=== PATIENT | female | born 1945 | race Caucasian/White ===

== ENCOUNTER 2023-12-24 01:41 | Observation (INO) | payer OTHER, SELFPAY ==
[2023-12-24] VITALS (7 sets, daily range): BP systolic 107–115; BP diastolic 55–82; PULSE 85–140; RESP 15–18; TEMP 36.1–36.8; O2SAT 94–98; BMI 30.5
--- NOTE | 2023-12-24 01:53 | DI.RAD.S_ITS ---
PROCEDURE: XR CHEST 1V INDICATIONS: chest pain TECHNIQUE: One view of the chest was acquired. COMPARISON: None. FINDINGS: Surgical changes and devices: None. Lungs and pleura: Lungs are clear. No pleural effusions or pneumothorax. Mediastinum: Mediastinal contours appear normal. Heart size is normal. Bones and chest wall: No suspicious bony lesions. Overlying soft tissues appear unremarkable. IMPRESSION: No acute pulmonary process. Dictated by: Columba Madrid M.D. on 12/24/2023 at 8:10 Approved by: Columba Madrid M.D. on 12/24/2023 at 8:15
--- NOTE | 2023-12-24 01:55 | EKG_ITS ---
[address] [address] Test Date: 2023-12-24 Pat Name: Gianna Sommer Department: Room: Gender: Female Tub Mender: : 1945 Requested By: Order Number: [id number] Reading MD: Ceasar Ash Measurements Intervals Lewis Rate: 142 P: 50 MS: 132 QRS: 32 QRSD: 78 T: 63 QT: 284 QTc: 436 Interpretive Statements Critical Test Result: High HR Sinus tachycardia Electronically Signed On 12-24-2023 15:04:18 PDT by Ceasar Ash
--- NOTE | 2023-12-24 02:00 | DI.CT.S_ITS ---
PROCEDURE: CT ABDOMEN PELVIS W CON INDICATIONS: pain can't urinate TECHNIQUE: After the administration of intravenous contrast, axial sections acquired from the lung bases to the pubic symphysis. Coronal and sagittal reformats were performed. For radiation dose reduction, the following was used: automated exposure control, adjustment of mA and/or kV according to patient size. COMPARISON: None. FINDINGS: Image quality: Diagnostic. Lower Chest: No significant findings. ABDOMEN: Liver: The liver is incompletely evaluated as it is not fully included within the field of view. Gallbladder: Stone is present within the lumen without wall thickening or pericholecystic fluid. Biliary ducts: No biliary dilation. Pancreas: No ductal dilation. Spleen: Size is within normal limits. Adrenal Glands: No adrenal nodules. Kidneys and Ureters: No hydronephrosis. No solid mass. No complex renal cystic lesion which requires follow up. Simple right renal cyst. Stomach and Bowel: Normal colonic caliber, without significant wall thickening. Moderate colonic stool without obstruction. Scattered diverticula without inflammatory change. Peritoneum: No abnormal intraperitoneal fluid. No free air. Ventral Wall: No significant ventral hernia. Abdominal Nodes: No retroperitoneal or mesenteric adenopathy by size criteria. Vessels: Aorta and inferior vena cava are normal in size. PELVIS: Pelvic Organs: Unremarkable. Bladder: Bladder is prominently distended. Pelvic Nodes: No enlarged lymph nodes. Miscellaneous: No inguinal hernias are seen. Bones: No aggressive osseous abnormality. IMPRESSION: Prominent colonic stool without obstruction. Cholelithiasis without imaging evidence of cholecystitis. As detailed above, the liver is incompletely visualized as it was not fully included within the field of view. If this remains of concern, follow-up is recommended. Dictated by: Columba Madrid M.D. on 12/24/2023 at 8:37 Approved by: Columba Madrid M.D. on 12/24/2023 at 8:39
--- NOTE | 2023-12-24 02:11 | PC.NURSE ---
260cc bladder scan volume.
[2023-12-24] MEDS: ASPIRIN 81 MG CHEW TAB 324 MG PO (02:12)
[2023-12-24] MEDS: SODIUM CHLORIDE 0.9% 1,000 ML 150 ML IV ×3 (02:12→16:17)
[2023-12-24 02:14] LABS: Add Manual Diff / Slide Review NO; Basophils Absolute Auto 0 /uL (0-100); Basophils Percent Auto 0.2 % (0-2); Eosinophils Absolute Auto 0 /uL (0-450); Eosinophils Percent Auto 0.1 % (2-4); Hematocrit 41.2 % (36-46); Lymphocytes Absolute Auto 1300 /uL (1100-4500); Lymphocytes Percent Auto 6.4 % (25-40); Mean Corpuscular HGB Conc 34.1 % (30-36); Mean Corpuscular Hemoglobin 30.8 PG (26-34); Mean Corpuscular Volume 90.5 fL (80-100); Monocytes Absolute Auto 600 /uL (0-900); Monocytes Percent Auto 3.1 % (3-14); Neutrophils Absolute Auto 18100 /uL (1500-7000); Neutrophils Percent Auto 90.2 % (50-75); Platelet Count 341 X10^3/uL (150-400); Red Blood Cell Count 4.55 X10^6/uL (4.0-5.2); Red Cell Distribution Width 13.4 % (11.6-14.8)
[2023-12-24 02:16] LABS: Alanine Aminotransferase 26 IU/L (<35); Albumin 4.3 g/dL (3.5-5.0); Albumin Globulin Ratio 1.4 (1.0-2.8); Alkaline Phosphatase 131 U/L (38-126); Aspartate Aminotransferase 25 IU/L (14-36); BUN Creatinine Ratio 23.2 (6-22); Blood Urea Nitrogen 16 mg/dL (7-17); Calcium 9.5 mg/dL (8.4-10.2); Carbon Dioxide 26 mmol/L (22-32); Chloride 104 mmol/L (98-107); Creatine Kinase 33 U/L (30-135); Estimated Glomerular Filt Rate > 60 mL/min (>60); Globulin 3.1 g/dL (1.7-4.1); Glucose 187 mg/dL (80-110); HEMOLYSIS < 15 (0-50); Lipase 46 U/L (23-300); Potassium 3.9 mmol/L (3.4-5.1); Sodium 138 mmol/L (137-145); Total Protein 7.4 g/dL (6.3-8.2)
[2023-12-24 02:17] LABS: Lactate (Lactic Acid) 1.8 mmol/L (0.7-2.1)
[2023-12-24 02:28] LABS: Troponin I 0.018 ng/mL (0.01-0.034)
[2023-12-24 02:41] LABS: Prothrombin Time 10.9 SECONDS (9.4-12.5)
[2023-12-24 02:44] LABS: PTT Partial Thromboplastin Tim 37 SECONDS (25.1-36.5)
--- NOTE | 2023-12-24 03:26 | ED_ITS ---
HPI - Abdominal Pain General Chief Complaint: Abdominal Pain Stated Complaint: Urine retention Time Seen by Provider: 12/24/23 01:52 Source: patient and EMS Mode of arrival: EMS History of Present Illness HPI narrative: Patient is a 78-year-old female history of CVA with right-sided deficits presenting today with inability urinate. She reports that she was in her normal state of health which is very limited mobility stays at home with a roommate in the caregiver when throughout the day she knows that she has had decreased urine output and increasing abdominal pain and discomfort. She denies any fever chills. No nausea or vomiting. She feels like she has not urinating very much and feels like she has a ladder. She is told that she had a normal bowel movement by her caregiver this afternoon. She does not always know if she is passing gas or having a bowel movement. She denies any sort of chest pain or palpitations. She noted to have significant tachycardia heart rate in the 160s but is sinus. Related Data Home Medications Medication Instructions Recorded Confirmed aspirin 81 mg tablet 81 mg PO DAILY 12/24/23 12/24/23 atorvastatin 80 mg tablet 80 mg PO DAILY 12/24/23 12/24/23 losartan 50 mg tablet 50 mg PO DAILY 12/24/23 12/24/23 Allergies Allergy/AdvReac Type Severity Reaction Status Date / Time No Known Drug Allergies Allergy Verified 12/24/23 02:13 Patient History Social History household members: friend(s) and caregiver Smoking Status: Former smoker alcohol intake: former Exam Initial Vital Signs Initial Vital Signs: Vital Signs Temperature 98.2 F 12/24/23 02:02 Pulse Rate 140 H 12/24/23 02:02 Respiratory Rate 18 12/24/23 02:02 Blood Pressure 114/68 12/24/23 02:02 Pulse Oximetry 96 12/24/23 02:02 Oxygen Delivery Method Room Air 12/24/23 02:02 GENERAL: Alert pleasant 78-year-old female and in no acute distress. HEENT: Head atraumatic,EOMI, pupils reactive, face symmetric, moist mucous membranes CARDIOVASCULAR: Tachycardic regular RESPIRATORY: Breath sounds equal bilaterally, no wheezes rales or rhonchi. ABDOMEN: Soft, to suprapubic area palpable EXTREMITIES: Normal range of motion, no clubbing or edema. Neurovascularly intact NEUROLOGICAL: Alert and oriented x4. Right sided weakness consistent with previous CVA SKIN: Warm, dry, no laceration, no petechiae, no rashes or lesions. Course Orders Ordered: Acetaminophen (Acetaminophen 325 Mg Tablet) 650 mg PO Q6H PRN PRN Reason: Fever/Mild Pain (1-3) Last Admin: 12/24/23 16:20 Dose: 650 mg Documented By: MM Al Hydrox/Mg Hydrox/Simethicone (Mag Hydrox/Alum/Simeth 30 Ml Udc) 30 ml PO Q6HR PRN PRN Reason: Dyspepsia Bisacodyl (Bisacodyl 10 Mg Supp) 10 mg GA DAILY PRN PRN Reason: Constipation Docusate Sodium (Docusate 100 Mg Capsule) 100 mg PO BID [facility] Last Admin: 12/24/23 22:00 Dose: 100 mg Documented By: Admin: 12/24/23 09:01 Dose: 100 mg Documented By: MM Enoxaparin Sodium (Enoxaparin 40 Mg/0.4 Ml Syringe) 40 mg SUBCUT DAILY [facility] Last Admin: 12/24/23 09:01 Dose: 40 mg Documented By: NOHEMY Sodium Chloride (Normal Saline 0.9%) 1,000 mls @ 150 mls/hr IV CONT [facility] Last Admin: 12/24/23 16:17 Dose: 150 mls/hr Documented By: Infusion: 12/24/23 15:42 Dose: Infused Documented By: Admin: 12/24/23 09:01 Dose: 150 mls/hr Documented By: Infusion: 12/24/23 08:53 Dose: Infused Documented By: Admin: 12/24/23 02:12 Dose: 150 mls/hr Documented By: ROBEL Ceftriaxone Sodium 1,000 mg/ (Sodium Chloride) 100 mls @ 200 mls/hr IV Q24H [facility] Magnesium Hydroxide (Magnesium Hydroxide 30 Ml Udc) 30 ml PO DAILY PRN PRN Reason: Constipation Last Admin: 12/24/23 12:35 Dose: 30 ml Documented By: MM Naloxone HCl (Naloxone 0.4 Mg/Ml Vial) 0.2 mg IV Q2MIN PRN PRN Reason: Opiate Reversal Ondansetron HCl (Ondansetron 4 Mg/2 Ml Inj) 4 mg IV Q8HR PRN PRN Reason: Nausea And Vomiting Polyethylene Glycol (Polyethylene Glycol 3350 17 Gm Powd.Pack) 17 gm PO BID [facility] Last Admin: 12/24/23 22:00 Dose: 17 gm Documented By: Admin: 12/24/23 12:35 Dose: 17 gm Documented By: MM Discontinued Medications Aspirin (Aspirin 81 Mg Chew Tab) 324 mg PO NOW ONE Stop: 12/24/23 01:53 Last Admin: 12/24/23 02:12 Dose: 324 mg Documented By: ROBEL Ceftriaxone Sodium 1,000 mg/ (Sodium Chloride) 100 mls @ 200 mls/hr IV NOW ONE Stop: 12/24/23 03:40 Last Infusion: 12/24/23 05:36 Dose: Infused Documented By: Admin: 12/24/23 03:59 Dose: 200 mls/hr Documented By: ROBEL Sodium Chloride (Normal Saline 0.9%) 2,653.53 mls @ 884.51 mls/hr 30 ml/kg infuse over 3 hr (2653.53 ml) IV NOW ONE Stop: 12/24/23 07:43 Last Admin: 12/24/23 05:40 Dose: Not Given Documented By: ROBEL Mineral Oil (Mineral Oil 1 Each Enema) 1 each GA NOW ONE Stop: 12/24/23 03:36 Last Admin: 12/24/23 03:59 Dose: 1 each Documented By: ROBEL Vital Signs Vital signs: Vital Signs - 8 hr 12/24/23 02:02 12/24/23 03:13 Temperature 98.2 F Pulse Rate 140 H 110 H Respiratory Rate 18 18 Blood Pressure 114/68 110/65 Pulse Oximetry 96 98 Oxygen Delivery Method Room Air Room Air MDM - Abdominal Pain Lab Data 12/24/23 06:35 12/24/23 06:35 Labs: Lab Results 12/24/23 12/24/23 12/24/23 Range/Units 02:00 03:00 03:00 WBC 20.0 H (4.5-11.0) X10^3/uL RBC 4.55 (4.0-5.2) X10^6/uL Hgb 14.0 (12.0-16.0) g/dL Hct 41.2 (36-46) % MCV 90.5 (80-100) fL MCH 30.8 (26-34) PG MCHC 34.1 (30-36) % RDW 13.4 (11.6-14.8) % Plt Count 341 (150-400) X10^3/uL Neut % (Auto) 90.2 H (50-75) % Lymph % (Auto) 6.4 L (25-40) % [place] % (Auto) 3.1 (3-14) % Eos % (Auto) 0.1 L (2-4) % Baso % (Auto) 0.2 (0-2) % Neut # (Auto) 63242 H (5536-9271) /uL Lymph # (Auto) 1300 (0301-8484) /uL [place] # (Auto) 600 (0-900) /uL Eos # (Auto) 0 (0-450) /uL Baso # (Auto) 0 (0-100) /uL PT 10.9 (9.4-12.5) SECONDS INR 1.0 (0.9-1.3) APTT 37 H (25.1-36.5) SECONDS D-Dimer 488 (<500) ng/ml Sodium 138 (137-145) mmol/L Potassium 3.9 (3.4-5.1) mmol/L Chloride 104 (98-107) mmol/L Carbon Dioxide 26 (22-32) mmol/L BUN 16 (7-17) mg/dL Creatinine 0.69 (0.52-1.04) mg/dL Estimated GFR > 60 (>60) mL/min BUN/Creatinine Ratio 23.2 H (6-22) Glucose 187 H (80-110) mg/dL Lactate 1.8 (0.7-2.1) mmol/L Calcium 9.5 (8.4-10.2) mg/dL Total Bilirubin 1.0 (0.2-1.3) mg/dL AST 25 (14-36) IU/L ALT 26 (<35) IU/L Alkaline Phosphatase 131 H (38-126) U/L Total Creatine Kinase 33 (30-135) U/L Troponin I 0.018 (0.01-0.034) ng/mL Total Protein 7.4 (6.3-8.2) g/dL Albumin 4.3 (3.5-5.0) g/dL Globulin 3.1 (1.7-4.1) g/dL Albumin/Globulin Ratio 1.4 (1.0-2.8) Lipase 46 (23-300) U/L Procalcitonin 0.070 (<0.5) ng/mL Urine Color Cancelled Urine Appearance Cancelled Urine pH Cancelled Ur Specific [place] Cancelled Urine Protein Cancelled Urine Glucose (UA) Cancelled Urine Ketones Cancelled Urine Occult Blood Cancelled Urine Nitrate Cancelled Urine Bilirubin Cancelled Urine Urobilinogen Cancelled Ur Leukocyte Esterase Cancelled Urine RBC 1-5/hpf Cancelled (0-5/HPF) Urine WBC 30-100/hpf H (0-5/HPF) Ur Squamous Epith Cells (0-5/HPF) Ur Transition Epith Cell Ur Renal Epithelial Cell Calcium Oxalate Crystal Uric Acid Crystals Triple Phos Crystals Other Crystals Amorphous Sediment Urine Bacteria (None) Hyaline Casts Granular Casts RBC Casts WBC Casts Other Casts Urine Mucus Urine Trichomonas Urine Yeast Urine Sperm Ur Culture Indicated? Micro UA Comment Vol Urine Centrifuged 12/24/23 12/24/23 12/24/23 Range/Units 03:00 03:00 03:00 WBC (4.5-11.0) X10^3/uL RBC (4.0-5.2) X10^6/uL Hgb (12.0-16.0) g/dL Hct (36-46) % MCV (80-100) fL MCH (26-34) PG MCHC (30-36) % RDW (11.6-14.8) % Plt Count (150-400) X10^3/uL Neut % (Auto) (50-75) % Lymph % (Auto) (25-40) % [place] % (Auto) (3-14) % Eos % (Auto) (2-4) % Baso % (Auto) (0-2) % Neut # (Auto) (1072-5143) /uL Lymph # (Auto) (7577-5268) /uL [place] # (Auto) (0-900) /uL Eos # (Auto) (0-450) /uL Baso # (Auto) (0-100) /uL PT (9.4-12.5) SECONDS INR (0.9-1.3) APTT (25.1-36.5) SECONDS D-Dimer (<500) ng/ml Sodium (137-145) mmol/L Potassium (3.4-5.1) mmol/L Chloride (98-107) mmol/L Carbon Dioxide (22-32) mmol/L BUN (7-17) mg/dL Creatinine (0.52-1.04) mg/dL Estimated GFR (>60) mL/min BUN/Creatinine Ratio (6-22) Glucose (80-110) mg/dL Lactate (0.7-2.1) mmol/L Calcium (8.4-10.2) mg/dL Total Bilirubin (0.2-1.3) mg/dL AST (14-36) IU/L ALT (<35) IU/L Alkaline Phosphatase (38-126) U/L Total Creatine Kinase (30-135) U/L Troponin I (0.01-0.034) ng/mL Total Protein (6.3-8.2) g/dL Albumin (3.5-5.0) g/dL Globulin (1.7-4.1) g/dL Albumin/Globulin Ratio (1.0-2.8) Lipase (23-300) U/L Procalcitonin (<0.5) ng/mL Urine Color Urine Appearance Urine pH Ur Specific [place] Urine Protein Urine Glucose (UA) Urine Ketones Urine Occult Blood Urine Nitrate Urine Bilirubin Urine Urobilinogen Ur Leukocyte Esterase Urine RBC (0-5/HPF) Urine WBC Cancelled (0-5/HPF) Ur Squamous Epith Cells 0-1 /hpf Cancelled (0-5/HPF) Ur Transition Epith Cell Cancelled Ur Renal Epithelial Cell Cancelled Calcium Oxalate Crystal Cancelled Uric Acid Crystals Cancelled Triple Phos Crystals Cancelled Other Crystals Cancelled Amorphous Sediment Cancelled Urine Bacteria Many (>30) H Cancelled (None) Hyaline Casts Cancelled Granular Casts Cancelled RBC Casts Cancelled WBC Casts Cancelled Other Casts Cancelled Urine Mucus Cancelled Urine Trichomonas Cancelled Urine Yeast Cancelled Urine Sperm Cancelled Ur Culture Indicated? Specimen cultured Micro UA Comment Vol Urine Centrifuged 12/24/23 12/24/23 Range/Units 03:00 03:00 WBC (4.5-11.0) X10^3/uL RBC (4.0-5.2) X10^6/uL Hgb (12.0-16.0) g/dL Hct (36-46) % MCV (80-100) fL MCH (26-34) PG MCHC (30-36) % RDW (11.6-14.8) % Plt Count (150-400) X10^3/uL Neut % (Auto) (50-75) % Lymph % (Auto) (25-40) % [place] % (Auto) (3-14) % Eos % (Auto) (2-4) % Baso % (Auto) (0-2) % Neut # (Auto) (4079-9264) /uL Lymph # (Auto) (3870-1181) /uL [place] # (Auto) (0-900) /uL Eos # (Auto) (0-450) /uL Baso # (Auto) (0-100) /uL PT (9.4-12.5) SECONDS INR (0.9-1.3) APTT (25.1-36.5) SECONDS D-Dimer (<500) ng/ml Sodium (137-145) mmol/L Potassium (3.4-5.1) mmol/L Chloride (98-107) mmol/L Carbon Dioxide (22-32) mmol/L BUN (7-17) mg/dL Creatinine (0.52-1.04) mg/dL Estimated GFR (>60) mL/min BUN/Creatinine Ratio (6-22) Glucose (80-110) mg/dL Lactate (0.7-2.1) mmol/L Calcium (8.4-10.2) mg/dL Total Bilirubin (0.2-1.3) mg/dL AST (14-36) IU/L ALT (<35) IU/L Alkaline Phosphatase (38-126) U/L Total Creatine Kinase (30-135) U/L Troponin I (0.01-0.034) ng/mL Total Protein (6.3-8.2) g/dL Albumin (3.5-5.0) g/dL Globulin (1.7-4.1) g/dL Albumin/Globulin Ratio (1.0-2.8) Lipase (23-300) U/L Procalcitonin (<0.5) ng/mL Urine Color Urine Appearance Urine pH Ur Specific [place] Urine Protein Urine Glucose (UA) Urine Ketones Urine Occult Blood Urine Nitrate Urine Bilirubin Urine Urobilinogen Ur Leukocyte Esterase Urine RBC (0-5/HPF) Urine WBC (0-5/HPF) Ur Squamous Epith Cells (0-5/HPF) Ur Transition Epith Cell Ur Renal Epithelial Cell Calcium Oxalate Crystal Uric Acid Crystals Triple Phos Crystals Other Crystals Amorphous Sediment Urine Bacteria (None) Hyaline Casts Granular Casts RBC Casts WBC Casts Other Casts Urine Mucus Urine Trichomonas Urine Yeast Urine Sperm Ur Culture Indicated? Cancelled Micro UA Comment Cancelled Vol Urine Centrifuged 10ml (spun) Cancelled Point of care testing: Urine Dip Bedside Urine Glucose Negative Bedside Urine Bilirubin - Negative Bedside Urine Ketone - Negative Urine Specific [place] 1.015 Bedside Urine Occult Blood +++ Bedside Urine pH 5.5 Bedside Urine Protein +/- 15 Bedside Urine Urobilinogen - Negative Bedside Urine Nitrite - Negative Bedside Urine Leukocytes +++ [address] scan - abdomen/pelvis: Radiologist's Impression: Preliminary report: Large volume stool within the colon compatible with constipation and obstipation. No evidence of colitis diverticulitis bowel obstruction obstructive uropathy or acute appendicitis. Chest x-ray: Radiologist's Impression: No acute cardiopulmonary process ECG Data Attestation: I personally reviewed and interpreted this ECG as follows: Prior ECG tracings: not available for review Interpretation: Sinus rhythm rate 142 GA interval 132 QRS 78 QTC 436 ischemia Q-wave noted in lead 3 no priors to compare MDM Narrative Medical decision making narrative: MDM CC: Lower abdominal pain Complicating co-morbidities: CVA with right-sided weakness Medical records reviewed: None Differential considered: UTI bowel obstruction diverticulitis kidney down Exam documented above, pertinent findings include: Tender lower abdominal area without distention persistent right-sided deficits but A&O x4 Lab Test results independently reviewed as above. Pertinent findings: Significant leukocytosis of 20, lactic acid 1.8 creatinine 0.69, D-dimer 488 troponin 0.018 Independently reviewed EKG as above sinus tachycardia without ischemic changes Imaging studies independently reviewed: CT does show significant constipation Consultations: Dr. Ann accepts patient Treatments: Vizcarra catheter with 400 mL out, fluids Rocephin, enema Re-evaluations: Heart rate initially was in the 160s it does decrease to 114. She denies any cardiac history. Discussion: Patient presenting today with abdominal pain she is found to have significant constipation and urinary retention. Vizcarra catheter placed, urine appears dark and cloudy. It is positive for bacteria and leukocytes. Concern for underlying infection and sepsis. She is persistently tachycardic a lower heart rate has improved. No concern for pulmonary embolism her D-dimer is less than 500 she has not hypoxic. Discharge Plan Departure Patient Disposition: Admitted as Observation Clinical Impression: Acute UTI, Constipation Admit Date/Time: 12/24/23 05:36 Admit Provider: Michael Torres
[2023-12-24 03:36] LABS: RBC Urine 1-5/HPF (0-5/HPF); Urine Volume 10mL (spun)
[2023-12-24 03:37] LABS: Bacteria Urine Many (>30); Culture Indicated Urine Specimen Cultured; Squamous Epithelial Cell Urine 0-1 /HPF (0-5/HPF); WBC Urine 30-100/HPF (0-5/HPF)
[2023-12-24] MEDS: MINERAL OIL 1 EACH ENEMA PR (03:59)
[2023-12-24] MEDS: cefTRIAXone 1,000 MG in SODIUM CHLORIDE 0.9% 100 ML 200 MG IV (03:59)
[2023-12-24 04:10] LABS: D Dimer 488 ng/ml (<500)
--- NOTE | 2023-12-24 06:21 | PM.HP.1 ---
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 In the ED recieved enema for obstipation and had Vizcarra placed for retention of 400 cc. Tachycardic, with leukocytosis, not hypotensive. Without fever or chills. She has no history of UTIs but is constipated and takes senna and miralax occasionally. She also has memory deficits and could only say that she takes two pills, one in the morning and one in pm referring to her live-in caregiver. Meds Home Medications and Allergies Allergies Allergy/AdvReac Type Severity Reaction Status Date / Time No Known Drug Allergies Allergy Verified 12/24/23 02:13 Review of Systems Constitutional Comments: w/o fever or chills Cardiovascular Comments: w/o palpitations or chest pain while tachycardic on admission Respiratory Comments: w/o congestion, cough or shortness of breath Gastrointestinal Comments: see HPI Genitourinary Comments: see HPI Neurologic Comments: unable to move Rt leg, severe Rt arm weakness using WC needs help with transfers to and from wheelchair w/o dysphagia Exam Vital Signs (past 8 hours): - 12/24/23 02:02 12/24/23 03:13 12/24/23 05:02 Temperature 98.2 F Pulse Rate 140 H 110 H 112 H Respiratory Rate 18 18 15 Blood Pressure 114/68 110/65 114/57 L Pulse Oximetry 96 98 95 Oxygen Delivery Method Room Air Room Air 12/24/23 05:30 12/24/23 05:30 Temperature Pulse Rate 106 H Respiratory Rate 15 Blood Pressure 113/59 L Pulse Oximetry 94 Oxygen Delivery Method Oxygen Delivery Method Room Air Const Other: in no distress HENMT Other: normocephalic, face symmetric Eyes Other: EOMI Neck Other: supple Resp Other: normal respiratory effort Cardio Other: tachycardic, regular GI Other: not distended Skin Other: w/o rashes Neuro Other: Rt Hemiparesis Memory deficits Extrem Other: w/o swelling Psych Other: Lucid, appropriate mood Objective ECG Impression: Sinus tachycardia, w/o ischemic changes Labs 12/24/23 02:00 12/24/23 02:00 Labs: Laboratory Results - last 24 hr 12/24/23 12/24/23 02:00 03:00 WBC 20.0 H RBC 4.55 Hgb 14.0 Hct 41.2 MCV 90.5 MCH 30.8 MCHC 34.1 RDW 13.4 Plt Count 341 Neut % (Auto) 90.2 H Lymph % (Auto) 6.4 L [place] % (Auto) 3.1 Eos % (Auto) 0.1 L Baso % (Auto) 0.2 Neut # (Auto) 82323 H Lymph # (Auto) 1300 [place] # (Auto) 600 Eos # (Auto) 0 Baso # (Auto) 0 PT 10.9 INR 1.0 APTT 37 H D-Dimer 488 Sodium 138 Potassium 3.9 Chloride 104 Carbon Dioxide 26 BUN 16 Creatinine 0.69 Estimated GFR > 60 BUN/Creatinine Ratio 23.2 H Glucose 187 H Lactate 1.8 Calcium 9.5 Total Bilirubin 1.0 AST 25 ALT 26 Alkaline Phosphatase 131 H Total Creatine Kinase 33 Troponin I 0.018 Total Protein 7.4 Albumin 4.3 Globulin 3.1 Albumin/Globulin Ratio 1.4 Lipase 46 Procalcitonin 0.070 Urine RBC 1-5/hpf Urine WBC 30-100/hpf H Ur Squamous Epith Cells 0-1 /hpf Urine Bacteria Many (>30) H Ur Culture Indicated? Specimen cultured Vol Urine Centrifuged 10ml (spun) Assessment & Plan Assessment and plan (1) Acute UTI: Status: Acute (2) Constipation: Status: Acute (3) History of stroke with current residual effects: Status: Acute Assessment & Plan narrative: Acute Cystitis / SIRS - Rocephin, IVFs, monitoring analyst - likely result of constipation, w/o prior episodes, w/o history of retention - placed Vizcarra in ED, voiding trial once obstipation resolved Constipation / Obstipation - had enema in ED - laxatives Hx of CVA / Rt Hemiparesis - lives with a caregiver who assists with transfers - wheelchair mobility at baseline DVT prophylaxis - Lovenox Patient seen in a real-time, audiovisual encounter, at [place], [place], with RN at bedside and provider in [place].
[2023-12-24 06:23] LABS: Lactate (Lactic Acid) 1.1 mmol/L (0.7-2.1)
[2023-12-24 06:42] LABS: Add Manual Diff / Slide Review NO; Basophils Absolute Auto 100 /uL (0-100); Basophils Percent Auto 0.6 % (0-2); Eosinophils Absolute Auto 0 /uL (0-450); Eosinophils Percent Auto 0.1 % (2-4); Hematocrit 37.2 % (36-46); Hemoglobin 12.5 g/dL (12.0-16.0); Lymphocytes Absolute Auto 1900 /uL (1100-4500); Lymphocytes Percent Auto 11.3 % (25-40); Mean Corpuscular HGB Conc 33.6 % (30-36); Mean Corpuscular Hemoglobin 30.7 PG (26-34); Mean Corpuscular Volume 91.2 fL (80-100); Monocytes Absolute Auto 700 /uL (0-900); Neutrophils Absolute Auto 13800 /uL (1500-7000); Platelet Count 289 X10^3/uL (150-400); Red Blood Cell Count 4.08 X10^6/uL (4.0-5.2); Red Cell Distribution Width 13.2 % (11.6-14.8); White Blood Cell Count 16.4 X10^3/uL (4.5-11.0)
[2023-12-24 06:49] LABS: BUN Creatinine Ratio 27.6 (6-22); Blood Urea Nitrogen 16 mg/dL (7-17); Calcium 8.8 mg/dL (8.4-10.2); Carbon Dioxide 26 mmol/L (22-32); Chloride 105 mmol/L (98-107); Estimated Glomerular Filt Rate > 60 mL/min (>60); Glucose 127 mg/dL (80-110); HEMOLYSIS < 15 (0-50); Potassium 3.9 mmol/L (3.4-5.1); Sodium 137 mmol/L (137-145)
[2023-12-24] MEDS: ENOXAPARIN 40 MG/0.4 ML SYRINGE SUBCUT (09:01)
[2023-12-24] MEDS: DOCUSATE 100 MG CAPSULE PO ×2 (09:01→22:00)
--- NOTE | 2023-12-24 10:39 | P.PN_ITS ---
Subjective Subjective Interval history: She is constipated. One small bowel movement yesterday, new urinary retention today. She was bed-bound. She has been bed-bound for about 10 months. No skin issues. Exam Vital Signs (past 8 hours): - 12/24/23 03:13 12/24/23 05:02 12/24/23 05:30 Temperature Pulse Rate 110 H 112 H 106 H Respiratory Rate 18 15 15 Blood Pressure 110/65 114/57 L Pulse Oximetry 98 95 94 Oxygen Delivery Method Room Air Oxygen Flow Rate 12/24/23 05:30 12/24/23 05:46 12/24/23 05:56 Temperature 97.2 F L Pulse Rate 113 H Respiratory Rate 16 Blood Pressure 113/59 L 114/82 Pulse Oximetry 98 Oxygen Delivery Method Room Air Oxygen Flow Rate 0 12/24/23 08:00 Temperature 97.0 F L Pulse Rate 108 H Respiratory Rate 16 Blood Pressure 107/55 L Pulse Oximetry 97 Oxygen Delivery Method Oxygen Flow Rate 0 Oxygen Delivery Method Room Air Oxygen Flow Rate 0 Narrative Exam Narrative: NAD, alert and oriented. Fluent speech. Lungs are clear, normal rate and effort. Heart is regular, no murmur gallop or rub. Abdomen is soft, non distended. Extremities are free of edema. Objective Labs 12/24/23 06:35 12/24/23 06:35 Labs: Laboratory Results - last 24 hr 12/24/23 12/24/23 12/24/23 02:00 03:00 05:47 WBC 20.0 H RBC 4.55 Hgb 14.0 Hct 41.2 MCV 90.5 MCH 30.8 MCHC 34.1 RDW 13.4 Plt Count 341 Neut % (Auto) 90.2 H Lymph % (Auto) 6.4 L [place] % (Auto) 3.1 Eos % (Auto) 0.1 L Baso % (Auto) 0.2 Neut # (Auto) 88753 H Lymph # (Auto) 1300 [place] # (Auto) 600 Eos # (Auto) 0 Baso # (Auto) 0 PT 10.9 INR 1.0 APTT 37 H D-Dimer 488 Sodium 138 Potassium 3.9 Chloride 104 Carbon Dioxide 26 BUN 16 Creatinine 0.69 Estimated GFR > 60 BUN/Creatinine Ratio 23.2 H Glucose 187 H Lactate 1.8 1.1 Calcium 9.5 Total Bilirubin 1.0 AST 25 ALT 26 Alkaline Phosphatase 131 H Total Creatine Kinase 33 Troponin I 0.018 Total Protein 7.4 Albumin 4.3 Globulin 3.1 Albumin/Globulin Ratio 1.4 Lipase 46 Procalcitonin 0.070 Urine RBC 1-5/hpf Urine WBC 30-100/hpf H Ur Squamous Epith Cells 0-1 /hpf Urine Bacteria Many (>30) H Ur Culture Indicated? Specimen cultured Vol Urine Centrifuged 10ml (spun) 12/24/23 06:35 WBC 16.4 H RBC 4.08 Hgb 12.5 Hct 37.2 MCV 91.2 MCH 30.7 MCHC 33.6 RDW 13.2 Plt Count 289 Neut % (Auto) 84.0 H Lymph % (Auto) 11.3 L [place] % (Auto) 4.0 Eos % (Auto) 0.1 L Baso % (Auto) 0.6 Neut # (Auto) 60728 H Lymph # (Auto) 1900 [place] # (Auto) 700 Eos # (Auto) 0 Baso # (Auto) 100 PT INR APTT D-Dimer Sodium 137 Potassium 3.9 Chloride 105 Carbon Dioxide 26 BUN 16 Creatinine 0.58 Estimated GFR > 60 BUN/Creatinine Ratio 27.6 H Glucose 127 H Lactate Calcium 8.8 Total Bilirubin AST ALT Alkaline Phosphatase Total Creatine Kinase Troponin I Total Protein Albumin Globulin Albumin/Globulin Ratio Lipase Procalcitonin Urine RBC Urine WBC Ur Squamous Epith Cells Urine Bacteria Ur Culture Indicated? Vol Urine Centrifuged [facility] Social History household members: friend(s) and caregiver Smoking Status: Former smoker alcohol intake: former Assessment & Plan Assessment & Plan narrative: 1. Constipation, present on admission and active. 2. Urine retention, present on admission and active. 3. Bed-bound, chronic and stable. PLAN: -aggressive bowel program today. -voiding trial after results of bowel program.
[2023-12-24] MEDS: polyethylene glycoL 3350 17 GM POWD.PACK PO ×2 (12:35→22:00)
[2023-12-24] MEDS: MAGNESIUM HYDROXIDE 30 ML UDC PO (12:35)
--- NOTE | 2023-12-24 15:13 | CM.DANOTE ---
Brief DCP Assessment Note Pt is a 78yo F here with UTI/constipation under OBS status. Pt uses wheel chair/is bed bound at baseline, and has a 24/7 in home CG that assists with transfers/managing ADLs at baseline. PCP Dr. Martinez ([facility]) Payer [id number] and self pay GANG MOWER OPERATOR reviewed EMR. Per chart review, pt's POA is Gina Braswell ([phone] or [phone]). GANG MOWER OPERATOR attempted to meet with pt in room, sleeping soundly and allowed to rest. Per RN, Pt's skin assessment looks good, pt appears well cared for at home by caregiver. GANG MOWER OPERATOR spoke with Gina on the phone. Gina is pt's fiance and her and pt are both bed bound at home. They have a 24/7 live in CG named Dwayne. Gina report normally they both attend all appointments virtually and Dwayne helps with most CG/mobility needs for both of them. Gina reports concerns with transport plan for home- was hopeful for BLS but reports Dwayne may be able to assist in transferring from wc to bed if [facility] WC van brings her home. Gina would like us to defer to pt for that decision but will inquire with Dwayne if he could assist with transfer at home. Gina denies any other CM/DCP needs at this time. P: home with fiance and CG support when medically stable. Transport plan pending: BLS vs [facility] wheelchair van if available/Dwayne able to transfer from wc to bed at home, pending pt preference. CM team will continue to follow closely. NORMA Mata Discharge Planning/Care Management CM Discharge Assessment Start: 12/24/23 15:10 Freq: Status: Active Protocol: Document 12/24/23 15:10 (Rec: 12/24/23 15:12 [id number]) Discharge Planning Assessment Assigned Coke Oven Patcher NORMA Fisher DPOA/Assigned Designee Name Gina, friend Contact Information [phone] Advance Directives? No History Provided By Patient Prior Living Arrangements House Household Members friend(s),caregiver Type of transporation used prior to Relies on Others admit Independent with ADL's No Is patient alert and oriented? Yes Needs Assistance With Bathing,Grooming,Meal Prep, Toileting,Managing Medications ,Home Chores / Shopping DME Already Rented / Owned Wheelchair Discharge Plan Home Transportation Arrangement likely CG in POV Referrals Initiated None needed Whiteboard Updated in Patient Room with No name and ext. # of Coke Oven Patcher Review Status In Process Please Provide Date Initial DC 12/24/23 Assessment Was Performed Next Review Type Continued Stay Review
[2023-12-24] MEDS: ACETAMINOPHEN 325 MG TABLET 650 MG PO (16:20)
[2023-12-25] MEDS: SODIUM CHLORIDE 0.9% 1,000 ML 150 ML IV (05:17)
[2023-12-25] MEDS: cefTRIAXone 1,000 MG in SODIUM CHLORIDE 0.9% 100 ML 200 MG IV (06:07)
[2023-12-25] MEDS: ACETAMINOPHEN 325 MG TABLET 650 MG PO (06:11)
[2023-12-25 08:00] VITALS: BP 123/64; PULSE 80; RESP 16; TEMP 36.6; O2SAT 99
[2023-12-25] MEDS: ENOXAPARIN 40 MG/0.4 ML SYRINGE SUBCUT (08:58)
[2023-12-25] MEDS: polyethylene glycoL 3350 17 GM POWD.PACK PO (08:58)
[2023-12-25] MEDS: DOCUSATE 100 MG CAPSULE PO (08:59)
--- NOTE | 2023-12-25 11:27 | PM.DS.1 ---
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 In the ED recieved enema for obstipation and had Vizcarra placed for retention of 400 cc. Tachycardic, with leukocytosis, not hypotensive. Without fever or chills. She has no history of UTIs but is constipated and takes senna and miralax occasionally. She also has memory deficits and could only say that she takes two pills, one in the morning and one in pm referring to her live-in caregiver. Discharge Providers Provider Date of admission: 12/24/23 05:36 Discharge Date: 12/25/23 Discharge provider: Wesly Palmer MD Summary Hospital Course Discharge Diagnosis: 1. Constipation, present on admission and active. 2. Urine retention, present on admission and active. 3. Acute cystitis 4. History of stroke with chronic right hemiparesis. 5. Bed-bound, chronic and stable. Hospital Course: The patient was hospitalized and underwent a bowel regimen, with production of a small bowel movement on the 1st day and a large bowel movement on the 2nd hospital day. She is feeling significantly better. She is chronically bed-bound and has been so for about 10 months. She has a history of stroke with a chronic right-sided lenny paresis, and is cared for at home by family members and caregiver. Urine suggested a possible urinary infection, with culture showing no growth at the time of discharge. She was treated empirically with antibiotics during hospitalization to continue at discharge, along with a bowel regimen of MiraLax twice daily. Her urinary retention resolved at the time of discharge and she was able to void independently. The patient acknowledged understanding, agreement and appreciation of this plan of care, and agreed to call back with any questions or concerns. Status at Discharge Cognitive/behavioral status at discharge: oriented Functional status at discharge: bed bound Overall status at discharge: patient is back to baseline Time Spent with Patient Time spent: Greater than 30 minutes Exam Vital Signs (past 8 hours): - 12/25/23 08:00 Temperature 97.8 F Pulse Rate 80 Respiratory Rate 16 Blood Pressure 123/64 Pulse Oximetry 99 Oxygen Delivery Method Room Air Oxygen Flow Rate 0 Narrative Exam Narrative: GENERAL: This is a well-nourished, well-developed patient, in no apparent distress. EYES: Pupils equal round and reactive. Extraocular motions intact. No scleral icterus. No injection or drainage. ENT: Mucous membranes pink and moist. NECK: Trachea midline. No JVD, bruits or lymphadenopathy. Supple, nontender, no meningeal signs. CARDIOVASCULAR: Regular rate and rhythm without murmurs, gallops, or rubs. RESPIRATORY: Clear to auscultation. GASTROINTESTINAL: Abdomen soft, non-tender, nondistended. EXTREMITIES: No clubbing, cyanosis, or edema. NEUROLOGIC: Alert, oriented, speech fluent, right arm weakness with flexion contracture, right leg paresis. DERMATOLOGIC: No rashes or skin lesions. Objective Imaging Chest x-ray: Radiologist's impression: No acute pulmonary process. CT scan - abdomen: Radiologist's impression: Prominent colonic stool without obstruction. Cholelithiasis without imaging evidence of cholecystitis. As detailed above, the liver is incompletely visualized as it was not fully included within the field of view. If this remains of concern, follow-up is recommended. Labs 12/24/23 06:35 12/24/23 06:35 Labs: Laboratory Results - last 24 hr 12/24/23 03:00 Urine Color Cancelled Urine Appearance Cancelled Urine pH Cancelled Ur Specific [place] Cancelled Urine Protein Cancelled Urine Glucose (UA) Cancelled Urine Ketones Cancelled Urine Occult Blood Cancelled Urine Nitrate Cancelled Urine Bilirubin Cancelled Urine Urobilinogen Cancelled Ur Leukocyte Esterase Cancelled Urine RBC Cancelled Urine WBC Cancelled Ur Squamous Epith Cells Cancelled Ur Transition Epith Cell Cancelled Ur Renal Epithelial Cell Cancelled Calcium Oxalate Crystal Cancelled Uric Acid Crystals Cancelled Triple Phos Crystals Cancelled Other Crystals Cancelled Amorphous Sediment Cancelled Urine Bacteria Cancelled Hyaline Casts Cancelled Granular Casts Cancelled RBC Casts Cancelled WBC Casts Cancelled Other Casts Cancelled Urine Mucus Cancelled Urine Trichomonas Cancelled Urine Yeast Cancelled Urine Sperm Cancelled Ur Culture Indicated? Cancelled Micro UA Comment Cancelled Vol Urine Centrifuged Cancelled PFSH Social History household members: friend(s) and caregiver Smoking Status: Former smoker alcohol intake: former Discharge Plan Discharge Plan Patient Disposition: Home Discharge orders & Medications Prescriptions: New polyethylene glycol 3350 17 gram Powder In Packet 17 g PO BID Qty: 30 0RF cephalexin 500 mg capsule 500 mg PO TID Qty: 15 0RF Continued atorvastatin 80 mg tablet 80 mg PO DAILY losartan 50 mg tablet 50 mg PO DAILY aspirin 81 mg Tablet 81 mg PO DAILY Diet/Activity/Treatments Diet: Regular Visit Report/Discharge Packet Stand Alone Forms: Patient Portal/API, Stroke Signs & Symptoms Discharge Data Attending Provider: Michael Torres Admit Date/Time: 12/24/23 05:36 Quality VTE Deep Vein Thrombosis/Pulmonary Embolism Present on Admission: No MIPS - Admit I confirm the patient?s Advance Care Plan is present, Code status is documented, Surrogate decision maker is in patient?s record [If Yes, STOP here]: Yes MIPS - Meds 'Current medications' to include all prescriptions, [id number] products, herbals, cannabis/cannabidiol products, and vitamin/mineral/dietary (nutritional) supplements. I have utilized all available resources to obtain, update, or review the patient?s current medications. [If Yes, STOP here]: Yes MIPS - DC The patient has a history of heart transplant or Left Ventricular Assist Device (LVAD). If yes, STOP here.: No The patient has current or prior documentation of left ventricular ejection fraction (LVEF) less than or equal to 40%, or moderate or severely depressed left ventricular systolic function.: No A. The patient was prescribed or already taking an Angiotensin-Converting Enzyme (GERARDO) Inhibitor, or Angiotensin Receptor Maria Esther (ARB).: No B. The patient was prescribed or already taking a beta-maria esther. [If Yes to Both A & B, STOP here]: No Patient not prescribed/taking GERARDO or ARB, no reason given.: No Patient not prescribed/taking beta-maria esthre, no reason given.: No [facility] PROFEE Charge Codes Discharge inpatient/observation: [id number]
--- NOTE | 2023-12-25 12:32 | CM.DPC ---
DCP Discharge Home Per MD, pt had bowel movement and no lindquist cath and was able to void independently and medically stable to discharge home today. SW called both [facility] transport and [facility] and confirmed neither are working today for cabulance due to it being a holiday today. SW met bedside with pt and explained role and pt states she does not think she could likely tolerate a w/c van at this time as she has been bed bound for about 10 months and would not have enough assist at home to get out of w/c into their house. Pt requesting BLS/non emergency ambulance transport and aware that her insurance might not fully cover or cover the cost of stretcher transport but pt preference is to d/c by stretcher as the safest mode of transport. Pt requested SW call her lobo Fuentes to update on time of transport so she and their CG are ready. SW called [facility] and they can transport pt with pickup of 1400 today and BLS form completed and placed on chart and copy scanned to EMR. TRUDY updated MOTEL FOOD SERVICE SUPERVISOR and RN and called pt's lobo Fuentes and updated and all remain in agreement with discharge to home today. Plan: Patient to discharge home today via [facility] at 1400 and fichele and multimedia coordinator CG at home and ready. NORMA Reynolds
--- NOTE | 2023-12-25 13:56 | PC.NURSE ---
Dayshift: Provided pt discharge education. All belongings with pt on stretcher in bag. PIV d/c'ed. Pt stated all questions answered. Provided discharge transport paperwork to [facility] employees and gave them report. Pt escorted to exit via via stretcher by [facility] transport employees.
== END 2023-12-25 14:17 | disposition home or self-care (01) ==
LOC: ED 05:06 → AC 05:37
PROVIDERS: Admitting Provider Internal Medicine; Emergency Provider Emergency Medicine; Referring Provider Emergency Medicine; Visit Provider Internal Medicine
DX: K59.00 Constipation, unspecified (principal); B96.20 Unspecified Escherichia coli [E. coli] as the cause of diseases classified elsewhere; N30.00 Acute cystitis without hematuria; I69.351 Hemiplegia and hemiparesis following cerebral infarction affecting right dominant side; Z99.3 Dependence on wheelchair; Z74.01 Bed confinement status
CPT/HCPCS: 36415; 71045; 74177; 80048; 80053; 81003; 81015; 82550; 83605; 83690; 84145; 84484; 85025; 85379; 85610; 85730; 87040; 87077; 87086; 87186; 93005; 96361; 96365; 96366; 96372; 99284; G0378; J0696; J1650; Q9967